=== PATIENT | female | born 1935 | race Caucasian/White ===

== ENCOUNTER 2021-08-12 11:18 | Emergency (ER) | payer OTHER ==
[~2021-08-12] VITALS: Ht 152.4 cm; Wt 39.0 kg
--- NOTE | 2021-08-12 11:18 | NUR ---
BIB [id number] from [facility] with c/o hypotension and generalized weakness. Per EMS report pt's SBP was in the 80's on scene and pt was given NS 250ml bolus in route to the ER. Pt was seen at [facility] yesterday per EMS. Pt was brought directly to room 1B via EMS gurney and placed on cont nuclear monitoring technician, pulse ox and BP. VS on arrival: BP 121/61, HR 62, RR 18, Pulse ox 97% (RA).
[2021-08-12 12:07] LABS: HEMATOCRIT 31.2 % (31.2-41.9); MEAN CORPUSCULAR HEMOGLOBIN 29.5 uug (24.7-32.8); MEAN CORPUSCULAR VOLUME 88.6 fL (75.5-95.3); PLATELET COUNT (AUTO) 552 K/uL (179-408)
--- NOTE | 2021-08-12 12:08 | NUR ---
Pt resting with NAD noted.
[2021-08-12 12:27] LABS: ALANINE AMINOTRANSFERASE 13 U/L (14-59); ALKALINE PHOSPHATASE 73 U/L (50-136); ASPARTATE AMINOTRANSFERASE 22 U/L (15-37); BILIRUBIN,DIRECT 0.2 mg/dL (0.0-0.2); BILIRUBIN,TOTAL 0.6 mg/dL (0.2-1.0); CARBON DIOXIDE 23 mmol/L (21-32); CHLORIDE 107 mmol/L (98-107); GLUCOSE 79 mg/dL (74-106); POTASSIUM 3.8 mmol/L (3.5-5.1); TOTAL PROTEIN, SERUM 6.6 g/dL (6.4-8.2); UREA NITROGEN, BLOOD 36 mg/dL (7-18)
--- NOTE | 2021-08-12 12:40 | NUR ---
Called pt's PMD per request. Office staff stated he will call back.
--- NOTE | 2021-08-12 14:15 | NUR ---
Dr. Fernández spoke with pt's pmd Dr. Suarez via telephone and pt to be d/c back to [facility]. Called [facility] for transport, ETA 90 mins. Pt resting with eyes closed and no s/s of distress noted.
--- NOTE | 2021-08-12 14:30 | NUR ---
Plan of care discussed with pt/ by and nursing staff.
--- NOTE | 2021-08-12 15:33 | NUR ---
IV removed. Catheter intact and site benign. Pressure and 4x4 gauze applied to site. No bleeding noted.
--- NOTE | 2021-08-12 15:36 | NUR ---
Pt trans back to [facility] via [facility].
== END 2021-08-12 16:05 | disposition home or self-care (01) ==
LOC: ER 11:18
DX: J90 Pleural effusion, not elsewhere classified (principal); E03.9 Hypothyroidism, unspecified; Z88.0 Allergy status to penicillin; Z88.1 Allergy status to other antibiotic agents; Z88.8 Allergy status to other drugs, medicaments and biological substances
CPT/HCPCS: 36415; 71045; 83605; 84484; 85025; 85730; 87040; 93005; A4663